=== PATIENT | female | born 1940 | race Caucasian/White ===

== ENCOUNTER 2017-11-26 07:26 | Outpatient (CLI) | payer SELFPAY | END 2017-11-26 07:27 | disposition EMS.NT | LOC: EMS 07:26 | PROVIDERS: ATTEND Surgery | DX: R53.1 Weakness (principal); W01.0XXA Fall on same level from slipping, tripping and stumbling without subsequent striking against object, initial encounter; Y92.003 Bedroom of unspecified non-institutional (private) residence as the place of occurrence of the external cause ==

== ENCOUNTER 2018-01-07 08:00 | Outpatient (CLI) | payer MEDICARE ==
[2018-01-07 17:44] LABS: INR 4.2 (0.8-1.2); PT - PROTHROMBIN TIME 44.7 secs (9.9-12.6)
== END 2018-01-07 08:01 | disposition home or self-care (01) ==
LOC: LAB.R 08:00
PROVIDERS: ATTEND Internal Medicine
DX: I48.2 Chronic atrial fibrillation (principal)
CPT/HCPCS: 85610

== ENCOUNTER 2018-01-17 11:30 | Outpatient (CLI) | payer MEDICARE | END 2018-01-17 11:31 | disposition home or self-care (01) | LOC: LAB.R 11:30 | PROVIDERS: ATTEND Internal Medicine | DX: I48.0 Paroxysmal atrial fibrillation (principal) | CPT/HCPCS: 85610 ==

== ENCOUNTER 2018-02-13 16:47 | Outpatient (CLI) | payer MEDICARE | END 2018-02-13 16:48 | disposition home or self-care (01) | LOC: EMS 16:47 | PROVIDERS: ATTEND Surgery | DX: R06.00 Dyspnea, unspecified (principal) | CPT/HCPCS: A0425; A0427 ==

== ENCOUNTER 2018-02-13 17:21 | Emergency (ER) | payer MEDICARE ==
--- NOTE | 2018-02-13 17:40 | ED Physician Documentation ---
PD HPI DYSPNEA - Stated complaint Stated Complaint: dyspnea - Chief complaint Chief Complaint: Resp - History obtained from History obtained from: Patient, Family - History of Present Illness Timing - onset: Yesterday Timing - onset during: Light activity Timing - duration: Days Timing - details: Gradual onset, Still present Inciting event(s): URI. No: Out of meds, Allergic rxn/anaphylaxis Associated symptoms: Cough, Bilateral edema. No: Fever, Wheezing, Chest pain / discomfort Similar symptoms before: Diagnosis (CHF remotely) Recently seen: Not recently seen Review of Systems Constitutional: denies: Fever, Chills Nose: reports: Rhinorrhea / runny nose, Congestion Throat: denies: Sore throat Cardiac: denies: Chest pain / pressure, Palpitations Respiratory: reports: Cough GI: denies: Abdominal Pain, Nausea, Vomiting Neurologic: denies: Generalized weakness PD PAST MEDICAL HISTORY - Past Medical History Cardiovascular: Hypertension, High cholesterol Respiratory: Pneumonia Endocrine/Autoimmune: Type 2 diabetes : Incontinence - Past Surgical History Past Surgical History: No - Present Medications Home Medications: Ambulatory Orders Medication Instructions Recorded Confirmed Alprazolam [Xanax] 0.5 mg PO ONCE 02/23/16 02/23/16 Apixaban [Eliquis] 5 mg PO BID 02/23/16 02/23/16 Atorvastatin Calcium [Lipitor] 40 mg PO DAILY 02/23/16 02/23/16 Ezetimibe [Zetia] 10 mg PO DAILY 02/23/16 02/23/16 Lidocaine Patch 5% [Lidoderm Patch] 1 each TOP DAILY PRN #10 patch 02/23/16 Potassium Chloride 20 meq PO DAILY 02/23/16 02/23/16 Ropinirole HCl [Requip] 2 mg PO DAILY 02/23/16 02/23/16 Torsemide 20 mg PO BID 02/23/16 02/23/16 Valsartan/Hydrochlorothiazide 1 tab PO DAILY 02/23/16 02/23/16 [Valsartan-Hctz 320-12.5 mg Tab] Albuterol Sulf [Ventolin Hfa 1 - 2 puffs INH Q4HR PRN #1 inhaler 02/13/18 Inhaler] Benzonatate [Tessalon] 100 mg PO TID PRN #25 capsule 02/13/18 Dexamethasone [Decadron] 4 mg PO DAILY #5 tablet 02/13/18 Doxycycline Monohydrate 100 mg PO BID #14 tablet 02/13/18 - Allergies Allergies/Adverse Reactions: Allergies Allergy/AdvReac Type Severity Reaction Status Date / Time codeine Allergy Rash Verified 02/23/16 09:01 - Social History Does the pt smoke?: No Smoking Status: Never smoker Does the pt drink ETOH?: No Does the pt have substance abuse?: No - Immunizations Immunizations are current?: Yes PD ED PE NORMAL - Vitals Vital signs reviewed: Yes - General General: Alert and oriented X 3, No acute distress, Well developed/nourished - HEENT HEENT: Moist mucous membranes, Pharynx benign - Neck Neck: Supple, no meningeal sign, No adenopathy - Cardiac Cardiac: No murmur. No: RRR (irregular but good rate. ) - Respiratory Respiratory: Clear bilaterally - Abdomen Abdomen: Normal bowel sounds, Soft - Back Back: No CVA TTP - Derm Derm: Normal color, Warm and dry, No rash - Extremities Extremities: No tenderness to palpate, Normal ROM s pain, No edema, No calf tenderness / cord Results - Vitals Vitals: Oxygen O2 Source Room air - EKG (time done) 17:31 Rate: Rate (enter#) (94) Rhythm: Atrial fibrillation [place]: Normal QRS: Normal Ischemia: Normal ST segments, Non specific changes. No: ST elevation c/w ischemia, ST depression, T wave inversion - Labs Labs: Laboratory Tests 02/13/18 02/13/18 02/13/18 17:54 17:54 17:54 WBC 11.9 H RBC 4.04 L Hgb 10.8 L Hct 34.2 L MCV 84.7 MCH 26.8 L MCHC 31.6 L RDW 15.9 H Plt Count 369 MPV 7.6 L Neut # 8.5 H Lymph # 2.0 [place] # 1.0 Eos # 0.3 Baso # 0.1 Absolute Nucleated RBC 0.00 Nucleated RBC % 0.0 PT INR Sodium 139 Potassium 4.6 Chloride 99 L Carbon Dioxide 29 Anion Gap 11.0 BUN 53 H Creatinine 1.0 Estimated GFR (MDRD) 54 L Glucose 178 H Calcium 10.1 Magnesium 2.0 Total Bilirubin 0.5 AST 18 ALT 14 Alkaline Phosphatase 78 Troponin I < 0.04 B-Natriuretic Peptide Total Protein 8.4 H Albumin 4.5 Globulin 3.9 Albumin/Globulin Ratio 1.2 Lipase 23 02/13/18 02/13/18 17:54 17:54 WBC RBC Hgb Hct MCV MCH MCHC RDW Plt Count MPV Neut # Lymph # [place] # Eos # Baso # Absolute Nucleated RBC Nucleated RBC % PT 15.4 H INR 1.4 H Sodium Potassium Chloride Carbon Dioxide Anion Gap BUN Creatinine Estimated GFR (MDRD) Glucose Calcium Magnesium Total Bilirubin AST ALT Alkaline Phosphatase Troponin I B-Natriuretic Peptide 158 H Total Protein Albumin Globulin Albumin/Globulin Ratio Lipase - Rads (name of study) chest Radiology: Prelim report reviewed (chest with mild cardiomegaly. Chronic shoulder dislocation. no infiltrates.), EMP read contemporaneously PD MEDICAL DECISION MAKING - ED course Complexity details: considered differential, d/w patient Departure - Departure Disposition: 01 Home, Self Care Clinical Impression: Dyspnea Qualifiers: Dyspnea type: shortness of breath Qualified Code(s): R06.02 - Shortness of breath Upper respiratory infection Qualifiers: URI type: unspecified URI Qualified Code(s): J06.9 - Acute upper respiratory infection, unspecified Condition: Stable Record reviewed to determine appropriate education?: Yes Instructions: ED Upper Resp Infec Abx Tx Follow-Up: RODY FINNEGAN [Primary Care Provider] - Prescriptions: Albuterol Sulf [Ventolin Hfa Inhaler] 1 - 2 puffs INH Q4HR PRN #1 inhaler PRN Reason: Shortness Of Air/Wheezing Benzonatate [Tessalon] 100 mg PO TID PRN #25 capsule PRN Reason: Cough Dexamethasone [Decadron] 4 mg PO DAILY #5 tablet Doxycycline Monohydrate 100 mg PO BID #14 tablet Comments: This does not look like heart failure/CHF. There is a little haziness on xray that could be early pneumonia or fluid. We will treat with an albuterol inhaler 2 puffs 4 times a day for 7-10 days. Also Tessalon if needed for cough and doxycycline antibiotic twice daily for a week. The other thing that can help is a steroid type anti-inflammatory. Will give a dose daily for the next 5 days. However this may affect your sugars and so if you find that they are going too high than you are comfortable with, then just discontinue the Decadron and the sugars will return to normal in a day. Recheck if not improving over the next few days. Return sooner if worsening. Discharge Date/Time: 02/13/18 19:51
[2018-02-13] MEDS ORDERED: ALBUTEROL NEB 2.5 MG/3 ML INH STA (17:54)
[2018-02-13 18:04] LABS: BASOPHILS # (AUTO) 0.1 10^3/uL (0.0-0.1); BASOPHILS % (AUTO) 0.7 %; EOSINOPHILS # (AUTO) 0.3 10^3/uL (0.0-0.7); EOSINOPHILS % (AUTO) 2.7 %; HGB - HEMOGLOBIN 10.8 g/dL (12.0-16.0); LYMPHOCYTES % (AUTO) 16.8 %; MEAN CORPUSCULAR HEMOGLOBIN 26.8 pg (27.0-31.0); MEAN CORPUSCULAR HGB CONC 31.6 g/dL (32.0-36.0); MEAN CORPUSCULAR VOLUME 84.7 fL (81.0-99.0); MEAN PLATELET VOLUME 7.6 fL (7.9-10.8); MONOCYTES % (AUTO) 8.5 %; NEUTROPHILS # (AUTO) 8.5 10^3/uL (1.5-6.6); NEUTROPHILS % (AUTO) 71.3 %; PLT - PLATELET COUNT 369 10^3/uL (130-450); RED BLOOD COUNT 4.04 10^6/uL (4.20-5.40); RED CELL DISTRIBUTION WIDTH 15.9 % (12.0-15.0); WHITE BLOOD COUNT 11.9 x10^3/uL (4.8-10.8)
[2018-02-13 18:13] LABS: ALBUMIN 4.5 g/dL (3.2-5.5); ALBUMIN/GLOBULIN RATIO 1.2 (1.0-2.2); BILIRUBIN,TOTAL 0.5 mg/dL (0.2-1.0); CALCIUM 10.1 mg/dL (8.5-10.3); TOTAL PROTEIN 8.4 g/dL (6.7-8.2)
--- NOTE | 2018-02-13 18:56 | XRAY Report ---
EXAM: CHEST RADIOGRAPHY EXAM DATE: 02/13/2018 06:35 PM. CLINICAL HISTORY: Cough and dyspnea. COMPARISON: None. TECHNIQUE: 2 views. FINDINGS: Cardiomegaly. Mild diffuse interstitial hazy opacities in the lungs bilaterally concerning for mild interstitial pulmonary edema. No pleural effusion or pneumothorax. Chronic bony deformity at the right humeral head with overlap with the glenoid, suspect right anterio r inferior glenohumeral joint dislocation. Cervical spine hardware. IMPRESSION: Cardiomegaly. Mild diffuse interstitial hazy opacities in the lungs bilaterally concernin g for mild interstitial pulmonary edema. Chronic bony deformity at the right humeral head with overlap with the glenoid, suspect right anterio r inferior glenohumeral joint dislocation. [facility] Referring Provider Line: [phone] SITE ID: [id number]
[2018-02-13] MEDS ORDERED: DOXYCYCLINE 100 MG TABLET PO STA (19:09)
[2018-02-13] MEDS ORDERED: BENZONATATE 100 MG CAPSULE PO STA (19:09)
[2018-02-13] MEDS ORDERED: DEXAMETHASONE 10 MG/ML VIAL IVP STA (19:11)
[2018-02-13 19:33] LABS: INR 1.4 (0.8-1.2); PT - PROTHROMBIN TIME 15.4 secs (9.9-12.6)
[2018-02-13 19:50] VITALS: BP 147/84
== END 2018-02-13 19:51 | disposition home or self-care (01) ==
LOC: EDUNIT# → ED 17:21
DX: J06.9 Acute upper respiratory infection, unspecified (principal); I48.91 Unspecified atrial fibrillation; I10 Essential (primary) hypertension; E78.00 Pure hypercholesterolemia, unspecified; E11.9 Type 2 diabetes mellitus without complications
CPT/HCPCS: 36415; 71046; 80053; 83690; 83735; 83880; 84484; 85025; 85610; 93005; 94640; 96374; 99284; A9270

== ENCOUNTER 2018-02-14 13:10 | Outpatient (CLI) | payer MEDICARE | END 2018-02-14 13:11 | disposition home or self-care (01) | LOC: LAB.F 13:10 | PROVIDERS: ATTEND Internal Medicine | DX: Z79.01 Long term (current) use of anticoagulants (principal) | CPT/HCPCS: 85610 ==

== ENCOUNTER 2018-02-19 10:58 | Outpatient (CLI) | payer MEDICARE | END 2018-02-19 10:59 | disposition home or self-care (01) | LOC: LAB.F 10:58 | PROVIDERS: ATTEND Internal Medicine | DX: Z79.01 Long term (current) use of anticoagulants (principal) | CPT/HCPCS: 85610 ==

== ENCOUNTER 2018-03-11 08:06 | Outpatient (CLI) | payer MEDICARE | END 2018-03-11 08:07 | disposition home or self-care (01) | LOC: LAB.F 08:06 | PROVIDERS: ATTEND Internal Medicine | DX: Z79.01 Long term (current) use of anticoagulants (principal) | CPT/HCPCS: 85610 ==

== ENCOUNTER 2018-03-21 09:57 | Outpatient (CLI) | payer MEDICARE | END 2018-03-21 09:58 | disposition home or self-care (01) | LOC: LAB.F 09:57 | PROVIDERS: ATTEND Internal Medicine | DX: Z79.01 Long term (current) use of anticoagulants (principal) | CPT/HCPCS: 85610 ==

== ENCOUNTER 2018-03-23 15:04 | Emergency (ER) | payer MEDICARE ==
--- NOTE | 2018-03-23 17:21 | ED Physician Documentation ---
PD HPI SKIN - Stated complaint Stated Complaint: ABD PX/MASS - Chief complaint Chief Complaint: Wound - History obtained from History obtained from: Patient - History of Present Illness Timing - onset: How many days ago (few) Timing - duration: Days (few) Timing - details: Gradual onset, Still present Location: Abdomen (lower abd wall with area of redness and swelling/tender that is increasing. Had abscess in area in past that needed drainage. Has insulin pump but redness is below that area.) Quality / character: Painful, Discolored, Swelling. No: Vesicular, Draining Associated symptoms: Other (eye drainage and redness today). No: Fever, Myalgias, N/V/D Contributing factors: No: Exposed to medication Similar symptoms before: Diagnosis (staph abscess) Recently seen: Not recently seen Review of Systems Constitutional: denies: Fever, Chills, Myalgias Eyes: reports: Discharge, Irritation. denies: Decreased vision, Photophobia Nose: denies: Rhinorrhea / runny nose, Congestion Throat: denies: Sore throat Cardiac: denies: Chest pain / pressure, Palpitations Respiratory: denies: Dyspnea, Cough GI: reports: Abdominal Pain (in skin). denies: Nausea, Vomiting, Diarrhea Skin: reports: Rash PD PAST MEDICAL HISTORY - Past Medical History Cardiovascular: Hypertension, High cholesterol Respiratory: Pneumonia Endocrine/Autoimmune: Type 2 diabetes : Incontinence - Past Surgical History Past Surgical History: No - Present Medications Home Medications: Ambulatory Orders Medication Instructions Recorded Confirmed Alprazolam [Xanax] 0.5 mg PO ONCE 02/23/16 02/23/16 Atorvastatin Calcium [Lipitor] 40 mg PO DAILY 02/23/16 02/23/16 Potassium Chloride 20 meq PO DAILY 02/23/16 02/23/16 Ropinirole HCl [Requip] 2 mg PO DAILY 02/23/16 02/23/16 Valsartan/Hydrochlorothiazide 1 tab PO DAILY 02/23/16 02/23/16 [Valsartan-Hctz 320-12.5 mg Tab] Albuterol Sulf [Ventolin Hfa 1 - 2 puffs INH Q4HR PRN #1 inhaler 02/13/18 Inhaler] Diclofenac Sodium [Voltaren] 03/23/18 Furosemide [Lasix] 03/23/18 HYDROcod/ACETAM 5/325 [[place] 5/325] 1 tab PO Q6H PRN #12 tablet 03/23/18 Insulin Lispro [Humalog Kwikpen 03/23/18 U-100] Oxybutynin [Ditropan] 03/23/18 Sulfamethox/Trimeth 800/160 1 each PO BID #14 tablet 03/23/18 [Bactrim Ds 800/160] Warfarin [Coumadin] 03/23/18 metFORMIN [Glucophage] 03/23/18 - Allergies Allergies/Adverse Reactions: Allergies Allergy/AdvReac Type Severity Reaction Status Date / Time codeine Allergy Rash Verified 02/23/16 09:01 - Social History Does the pt smoke?: No Smoking Status: Never smoker Does the pt drink ETOH?: No Does the pt have substance abuse?: No - Immunizations Immunizations are current?: Yes PD ED PE NORMAL - Vitals Vital signs reviewed: Yes - General General: Alert and oriented X 3, No acute distress, Well developed/nourished - HEENT HEENT: PERRL, EOMI (mild crusting and redness lower conjunctiva both sides. Nose is clear. ) - Neck Neck: Supple, no meningeal sign, No adenopathy - Cardiac Cardiac: RRR, No murmur - Respiratory Respiratory: Clear bilaterally - Abdomen Abdomen: Normal bowel sounds, Soft, Non distended, No organomegaly, Other ( insulin pump right lower abd. Below and medial to that is focal area of redness and induration without drainage. U/S shows small fluid collection and surrounding swelling. ) - Derm Derm: Normal color, Warm and dry - Extremities Extremities: No deformity, No tenderness to palpate, Normal ROM s pain, No edema , No calf tenderness / cord - Neuro Neuro: Alert and oriented X 3, No motor deficit, Normal speech Results - Vitals Vitals: Oxygen O2 Source Room air - Labs Labs: Laboratory Tests 03/23/18 18:21 Whole Blood INR 1.5 H Procedures - Abscess I&D (location) right lower abd wall Preparation: Confirmed with ultrasound (small fluid collection on U/S), Chlorhexadine, Lidocaine 1%, With epi Incision: Incised with scalpel, Purulent drainage (just small amount), Irrigated. No: Packed Other: Pt tolerated well, Dressing applied, Antibiotic prescribed PD MEDICAL DECISION MAKING - ED course Complexity details: reviewed results, considered differential (seems skin abscess and does not seem to be at the actual pump pocket but lower. so can treat with abx and see if clears. eye discharge could be coincidence, but would treat for staph conunctiviits with sulfa in case. ), d/w patient Departure - Departure Disposition: 01 Home, Self Care Clinical Impression: Abscess of abdominal wall Conjunctivitis Qualifiers: Conjunctivitis type: unspecified Laterality: bilateral Qualified Code(s): H10.9 - Unspecified conjunctivitis Condition: Stable Record reviewed to determine appropriate education?: Yes Instructions: ED Abscess IandD Prescriptions: HYDROcod/ACETAM 5/325 [[place] 5/325] 1 tab PO Q6H PRN #12 tablet PRN Reason: Pain Sulfamethox/Trimeth 800/160 [Bactrim Ds 800/160] 1 each PO BID #14 tablet Comments: Warm moist towels to the abscess area to 3 times a day. Allow it to drain if it wants to. Bactrim antibiotic twice daily for a week. Have your INR rechecked in about 3-5 days as antibiotics may affect the level of that. Recheck with your primary care in a few days anyway regarding the infection. Use Tylenol or hydrocodone if needed for pain. Use the erythromycin ointment for the eyes as a separate issue. Discharge Date/Time: 03/23/18 18:25
[2018-03-23] MEDS ORDERED: LIDOCAINE MPF 1%-EPI 1:200000 30 ML VIAL SUBQ STA (17:34)
[2018-03-23] MEDS ORDERED: ERYTHROMYCIN OPHTH OINT 1 GM TUBE EACHEYE STA (17:34)
[2018-03-23] MEDS ORDERED: SULFAM/TRIM 800/160 Prepack 2 PO ONE (17:34)
[2018-03-23] MEDS ORDERED: SULFAMETH/TRIMETH DS 800/160 MG TABLET PO STA (17:34)
[2018-03-23] MEDS ORDERED: HYDROcod/ACET 5/325 Prepack 4 PO STA (17:34)
[2018-03-23] MEDS ORDERED: HYDROcod/ACETAM 5/325 MG TABLET PO STA (17:34)
[2018-03-23 18:16] VITALS: BP 142/67
== END 2018-03-23 18:25 | disposition home or self-care (01) ==
LOC: ED 15:04
DX: L02.211 Cutaneous abscess of abdominal wall (principal); H10.9 Unspecified conjunctivitis; I10 Essential (primary) hypertension; E11.9 Type 2 diabetes mellitus without complications; Z79.4 Long term (current) use of insulin
CPT/HCPCS: 10060; 85610; 99283; A9270; J3490

== ENCOUNTER 2018-05-13 11:55 | Outpatient (CLI) | payer MEDICARE | END 2018-05-13 23:59 | disposition home or self-care (01) | LOC: LAB.F 11:55 | PROVIDERS: ATTEND Internal Medicine | DX: Z79.01 Long term (current) use of anticoagulants (principal) | CPT/HCPCS: 85610 ==

== ENCOUNTER 2018-05-26 13:04 | Outpatient (CLI) | payer MEDICARE | END 2018-05-26 13:05 | disposition home or self-care (01) | LOC: LAB.F 13:04 | PROVIDERS: ATTEND Internal Medicine | DX: Z79.01 Long term (current) use of anticoagulants (principal) | CPT/HCPCS: 85610 ==